=== PATIENT | female | born 1960 | race Asian ===

== ENCOUNTER 2018-10-19 07:29 | Emergency (ER) | payer OTHER ==
[~2018-10-19] VITALS: Ht 154.9 cm; Wt 52.0 kg
[2018-10-19] MEDS ORDERED: SODIUM CHLORIDE 0.9% 1,000 ML IV ONE (07:51)
[2018-10-19] MEDS ORDERED: ONDANSETRON HCL 4MG/2ML INJ IV STA (07:51)
[2018-10-19 08:05] LABS: BASOPHILS % 0.3 % (0.0-2.0); HEMATOCRIT. 42.9 % (36.0-48.0); HEMOGLOBIN. 14.1 g/dL (12.0-16.0); LYMPHOCYTES % 17.2 % (20.0-50.0); MEAN CORPUSCULAR VOLUME 82.1 fL (81.0-99.0); MEAN PLATELET VOLUME 8.6 fl (7.4-10.4); MONOCYTES % 2.1 % (2.0-8.0); NEUTROPHILS % 80.4 % (40.0-76.0); PLATELET 180 x1000/uL (130-400); RED BLOOD CELL COUNT 5.22 mill/uL (4.2-5.4); RED CELL DISTRIBUTION WIDTH 13.7 % (11.6-14.6)
[2018-10-19 08:08] LABS: CHLORIDE 104 mEq/L (98-107)
[2018-10-19 10:24] LABS: CLARITY URINE CLEAR (CLEAR); COLOR URINE YELLOW (YELLOW); KETONES URINE 3+ (NEGATIVE); LEUKOCYTE ESTERASE URINE TRACE (NEGATIVE); NITRITE URINE NEGATIVE (NEGATIVE); OCCULT BLOOD URINE NEGATIVE (NEGATIVE); PROTEIN URINE NEGATIVE (NEGATIVE); SPECIFIC GRAVITY URINE 1.011 (1.005-1.030); UROBILINOGEN URINE 0.2 E.U./dL (0.2-1.0)
[2018-10-19 11:58] VITALS: BP 122/64
== END 2018-10-19 11:59 | disposition home or self-care (01) ==
LOC: ER 07:29
DX: R11.0 Nausea (principal); E11.9 Type 2 diabetes mellitus without complications
CPT/HCPCS: 36415; 71045; 80053; 81003; 83690; 85025; 93005; 96374; 99284; J2405; J7030